=== PATIENT | male | born 1965 | race Hispanic/Latino ===

== ENCOUNTER → 2022-11-26 | Outpatient (CLI) | payer OTHER | LOC: RAD 14:54 | PROVIDERS: ATTEND Internal Medicine | DX: M12.811 Other specific arthropathies, not elsewhere classified, right shoulder (principal) ==

== ENCOUNTER → 2023-03-30 | Outpatient (CLI) | payer MEDICARE, OTHER | LOC: MRI 10:59 | PROVIDERS: ATTEND Internal Medicine | DX: R06.02 Shortness of breath (principal); R42 Dizziness and giddiness | CPT/HCPCS: 70551; 71046 ==

== ENCOUNTER 2024-05-26 15:49 | Emergency (ER) | payer MEDICARE, OTHER ==
[~2024-05-26] VITALS: Ht 165.1 cm; Wt 68.0 kg
[2024-05-26 16:05] VITALS: PULSE 107; RESP 21; TEMP 98.8; O2SAT 100
[2024-05-26] MEDS ORDERED: NEURONTIN100 MG PO (16:36)
[2024-05-26] MEDS: GABAPENTIN 100 MG CAP PO ONE (16:53)
== END 2024-05-26 17:04 | disposition home or self-care (01) ==
LOC: ER 16:00
DX: G62.9 Polyneuropathy, unspecified (principal); I10 Essential (primary) hypertension; E11.9 Type 2 diabetes mellitus without complications; Z85.820 Personal history of malignant melanoma of skin
CPT/HCPCS: 99284